=== PATIENT | male | born 1995 | race Caucasian/White ===

== ENCOUNTER 2022-08-23 03:01 | Emergency (ER) | payer OTHER ==
[~2022-08-23] VITALS: Ht 180.3 cm; Wt 104.5 kg
[2022-08-23] MEDS ORDERED: KETOROLAC TROMETHAMINE 30 MG/ML VIAL IM ONE (03:45)
[2022-08-23] MEDS ORDERED: IBUP-2070 PO (07:08)
[2022-08-23] MEDS ORDERED: PERCT PO (07:09)
[2022-08-23 07:27] VITALS: BP 125/70
== END 2022-08-23 07:27 | disposition home or self-care (01) ==
LOC: EMS 03:02
DX: S52.122A Displaced fracture of head of left radius, initial encounter for closed fracture (principal); W18.39XA Other fall on same level, initial encounter; Y93.66 Activity, soccer; Y92.89 Other specified places as the place of occurrence of the external cause; Y99.8 Other external cause status
CPT/HCPCS: 99283; 29105; 73080; 96372; J1885